=== PATIENT | male | born 1995 | race Caucasian/White ===

== ENCOUNTER 2018-07-15 19:38 | Emergency (ER) | payer OTHER ==
--- NOTE | 2018-07-15 21:55 | ED Physician Documentation ---
PD HPI UPPER EXT INJURY - Stated complaint Stated Complaint: FINGER LAC - Chief complaint Chief Complaint: Laceration - History obtained from History obtained from: Patient - History of Present Illness Location: Left, Finger (5th) Type of injury: Laceration Where injury occurred: Work Timing - onset: How many hours ago (1) Timing - duration: Hours (1) Timing - details: Abrupt onset Pain level max: 3 Pain level now: 1 Improved by: Rest Worsened by: Moving, Palpating Associated symptoms: No: Weakness, Numbness, Tingling, Swelling Contributing factors: No: Anticoagulated - Additonal information Additional information: Laceration to the left fifth digit after an air compressor fell over crushing the finger. Patient is right-handed Review of Systems Neurologic: denies: Focal weakness, Numbness PD PAST MEDICAL HISTORY - Past Medical History Past Medical History: No - Past Surgical History Past Surgical History: Yes Ortho: ACL reconstruction - Present Medications Home Medications: Ambulatory Orders Medication Instructions Recorded Confirmed No Known Home Medications 07/15/18 07/15/18 - Allergies Allergies/Adverse Reactions: Allergies Allergy/AdvReac Type Severity Reaction Status Date / Time Penicillins Allergy Rash Verified 07/15/18 19:46 - Social History Does the pt smoke?: Yes Smoking Status: Former smoker Does the pt drink ETOH?: Yes Does the pt have substance abuse?: No - Immunizations Immunizations are current?: Yes - POLST Patient has POLST: No PD ED PE NORMAL - Vitals Vital signs reviewed: Yes - General General: Alert and oriented X 3, No acute distress - Derm Derm: Warm and dry - Extremities Extremities: Other (L 5th digit - 1 cm, linear laceration to the center of the pad of the distal aspect of the finger. No nail injury or subungual hematoma NVI. no tendon injury) - Neuro Neuro: Alert and oriented X 3 Results - Vitals Vitals: Vital Signs - 24 hr 07/15/18 07/15/18 19:40 22:24 Temperature 36.4 C L Heart Rate 90 88 Respiratory 16 Rate Blood Pressure 139/82 H 132/82 H O2 Saturation 98 98 Oxygen O2 Source Room air Procedures - Laceration (location) L 5th digit Length in cm: 1 Wound type: Linear, Into subcut fat, Clean Neurovascular status: Sensory intact, Motor intact, Vascular intact Tendon involvement: Tendon intact Anesthesia: Lidocaine 1% Wound Preparation: Irrigated copiously NS, Wound explored, To the base Skin layer closure: Nylon, Interrupted, Size #-0 - enter number (4), Sutures - enter # (3) Other: Patient tolerated well, No complications, Neurovascular intact, Dressing applied, Tetanus UTD Complexity: Simple PD MEDICAL DECISION MAKING - ED course Complexity details: considered differential, d/w patient ED course: Left 5th finger laceration. No evidence of fracture. No tenderness over the distal aspect of the finger. Laceration repaired. Warnings of infection and instructions on wound care given at bedside. Also counseled on how to minimize scarring. Patient counseled regarding signs and symptoms for which I believe and urgent re-evaluation would be necessary. Patient with good understanding of and agreement to plan and is comfortable going home at this time This document was made in part using voice recognition software. While efforts are made to proofread this document, sound alike and grammatical errors may occur. Departure - Departure Disposition: 01 Home, Self Care Clinical Impression: Finger laceration Qualifiers: Encounter type: initial encounter Finger: little finger Damage to nail status: without damage Foreign body presence: without foreign body Laterality: left Qualified Code(s): S61.217A - Laceration without foreign body of left little finger without damage to nail, initial encounter Condition: Good Instructions: ED Laceration Hand Follow-Up: MAYRA MARKHAM [Primary Care Provider] - (in 10 days for suture removal) Comments: Follow-up with your doctor in approximately 10 days for suture removal. Return if you notice redness, swelling or drainage from the wound. Discharge Date/Time: 07/15/18 22:30
[2018-07-15] MEDS ORDERED: EPINEPHrine 1 MG/ML AMP ONE (22:03)
[2018-07-15] MEDS ORDERED: LIDOCAINE 1% 2 ML VIAL ONE (22:06)
[2018-07-15 22:24] VITALS: BP 132/82
== END 2018-07-15 22:30 | disposition home or self-care (01) ==
LOC: ED 19:38
DX: S61.217A Laceration without foreign body of left little finger without damage to nail, initial encounter (principal); W01.0XXA Fall on same level from slipping, tripping and stumbling without subsequent striking against object, initial encounter; Y93.01 Activity, walking, marching and hiking; Y92.89 Other specified places as the place of occurrence of the external cause; Y99.0 Civilian activity done for income or pay; Z87.891 Personal history of nicotine dependence
CPT/HCPCS: 12001; 99282; 99283